=== PATIENT | female | born 1975 | race Caucasian/White ===

== ENCOUNTER 2016-05-06 12:44 | Emergency (ER) | payer BC ==
[2016-05-06 13:01] VITALS: TEMP 99.3
--- NOTE | 2016-05-06 14:38 | CT ---
EXAM DESCRIPTION: CT ABDOMEN PELVIS WITH IV CONTRAST CLINICAL HISTORY: rlq pain 2d COMPARISON: February 09, 2014 TECHNIQUE: Post-contrast CT images of the abdomen and pelvis are obtained. CT scan done according to ALARA (As Low As Reasonably Achievable). FINDINGS: Visualized lung bases show no acute findings. Liver is enlarged measuring 18.1 cm AP at the right midclavicular line. Liver is mildly heterogeneous and decreased attenuation compared to the spleen. Stable fluid attenuation cyst of the anterior right lobe of the liver measuring 19 mm. The spleen, pancreas, adrenal glands, and contracted gallbladder are unremarkable. Abdominal vasculature is unremarkable. There is are 2, 2-3 mm nonobstructing calcifications in a lower pole calyx of the right kidney stable from previous exam. No ureteral calcification or obstruction is seen. Urinary bladder is unremarkable. The uterus and ovaries are unremarkable. The appendix is within normal limits. There are borderline lymph nodes in the mesenteric the right lower quadrant measuring up to 9 mm short axis. These are stable from previous. Occasional nonspecific less than 1 cm retroperitoneal lymph nodes are identified. No small bowel obstruction. Stomach is unremarkable. Scattered diverticuli of the descending to sigmoid colon are seen without associated inflammatory changes or fluid collections. Osseous structures show no aggressive bony lesions. IMPRESSION: Nonobstructing right nephrolithiasis is again seen. No CT evidence of acute appendicitis. Colon diverticulosis without CT evidence of diverticulitis. Stable hepatic cyst. Hepatomegaly with findings that suggest diffuse fatty infiltration of the liver. Electronically signed by: Felix Garcia MD 05/06/2016 14:36
[2016-05-06 14:45] VITALS: O2SAT 97
--- NOTE | 2016-05-06 16:19 | US ---
EXAM DESCRIPTION: US PELVIS CLINICAL HISTORY: rlq pain COMPARISON: None. TECHNIQUE: Transvaginalsonographic images of the pelvis were acquired and submitted for review. FINDINGS: Uterus: * Orientation- anteverted. * Size- 9.7 x 4.7 x 4.2cm * Mass- a fibroid is observed posteriorly measuring 2.6 x 2.5 x 1.9 cm. * Cervix- nabothian cyst * Endometrium- normal and measures 7 mm in thickness Ovaries: * Size- right measures 2.14 x 1.8 x 2.4 cm; left measures 1.47 x 1.8 x 1.4 cm * Cyst-follicles are identified in both ovaries. * Mass- None. * Vascular flow- Present. Adnexa: Mass- None. Free fluid - None. IMPRESSION: A fibroid is observed posteriorly in the uterus measuring 2.6 cm in greatest diameter. Electronically signed by: Chris Valles MD 05/06/2016 16:17
[2016-05-06] MEDS ORDERED: MAGNESIUM HYDROXIDE 30 ML UD PO ONE (16:40)
[2016-05-06] MEDS ORDERED: cefTRIAXone SODIUM 1 GM VIAL IM ONE (16:40)
--- NOTE | 2016-05-06 16:49 | ED.PDOC ---
History of Present Illness - General Chief Complaint: Abdominal Pain Stated Complaint: abdominal discomfort Time Seen by Provider: 05/06/16 12:53 Source: patient Exam Limitations: no limitations - History of Present Illness Initial Comments: the patient is a 40-year-old female presenting to the emergency room secondary to right lower quadrant pain. She seems to have pain for the last 24 hours. No nausea or vomiting. She has had some mild increase in urination. It is a little worse with movement. It is definitely worse when I press down there. She still has her appendix. She has had a tubal ligation in the past but no other abdominal surgeries. She is having bowel movements and passing gas. No diarrhea. No fevers. No other new symptoms other than just pain. Timing/Duration: 24 hours Severity: moderate Improving Factors: nothing Worsening Factors: nothing Associated Symptoms: denies symptoms Allergies/Adverse Reactions: Allergies NO KNOWN ALLERGY Allergy (Verified 05/06/16 13:03) Home Medications: Ambulatory Orders Ciprofloxacin [Cipro] 500 mg PO BID #20 tab 05/06/16 Citalopram Hydrobromide [CeleXA] 20 mg PO DAILY 05/06/16 Lorazepam [Ativan] 1 mg PO DAILY PRN 05/06/16 Metronidazole 500 mg PO TID #30 tab 05/06/16 Review of Systems - Review of Systems Constitutional: States: no symptoms reported EENTM: States: no symptoms reported Respiratory: States: no symptoms reported Cardiology: States: no symptoms reported Gastrointestinal/Abdominal: States: see HPI Genitourinary: States: see HPI Musculoskeletal: States: no symptoms reported Skin: States: no symptoms reported Neurological: States: no symptoms reported All other Systems: No Change from Baseline Past Medical History (General) - Patient Medical History Hx Stroke: No Hx Congestive Heart Failure: No Hx Diabetes: No Hx Renal Disease: Yes - Kidney stones, Lithotripsy X1 for stone >11mm. Hx MRSA: No - Vaccination History Hx Influenza Vaccination: No - Social History Hx Tobacco Use: No Hx Alcohol Use: Yes - Occasional - drank beer on thursday and thought she passed the stone. Hx Substance Use: No Hx Substance Use Treatment: No Hx Depression: Yes - Female History Patient is a Female of Child Bearing Age (10 -59 yrs old): Yes Patient : No Family Medical History - Family History Mother Family History: Unknown Living Status: Unknown Sister Family History: Unknown Living Status: Still Living Hx Family;Other: Multiple family members with kidney stones. Physical Exam - Physical Exam General Appearance: Alert, No apparent distress Eye Exam: bilateral normal Ears, Nose, Throat: normal ENT inspection, normal pharynx Neck: full range of motion, supple, normal inspection Respiratory: chest non-tender, lungs clear, normal breath sounds, no respiratory distress, no accessory muscle use Cardiovascular/Chest: normal peripheral pulses, regular rate, rhythm, no edema Peripheral Pulses: radial,right: 2+, radial,left: 2+, dorsalis pedis,right: 2+, dorsalis pedis,left: 2+ Gastrointestinal/Abdominal: soft, other - right lower quadrant with moderate discomfort palpation. No suprapubic discomfort to palpation. No right upper or left lower discomfort palpation. No costovertebral angle tenderness. Rectal Exam: deferred Back Exam: normal inspection Extremity: normal range of motion, non-tender, normal inspection, no pedal edema , normal capillary refill Neurologic: alert, normal mood/affect, oriented x 3 Skin Exam: normal color Comments: Vital Signs - 24 hr 05/06/16 05/06/16 05/06/16 12:54 14:40 16:00 Temperature 99.3 F Pulse Rate [ 76 73 74 Left Radial] Respiratory 20 20 18 Rate Blood Pressure 129/85 137/88 152/94 [Right Arm] O2 Sat by Pulse 98 97 97 Oximetry Progress - Progress Progress: 05/06/16 16:54 the patient is a 40-year-old female presenting with right lower quadrant pain of uncertain etiology at this time. Lab work, CT scan and pelvic ultrasound are reassuring. she does have mild constipation and thus will receive a dose of laxative here today all as 1 dose of Rocephin. If getting cleaned out does not improve the pain and the patient is to start taking her prescriptions for ciprofloxacin and Flagyl. We will cover for early appendicitis, mild colitis or early diverticulitis not directly visualized on the CT scan or reflected in the lab work at this time. she needs to take her medications with a small amount of food and avoid alcohol while taking them. The patient is to follow up with her primary care doctor later this week or early next week. She needs to return here to the emergency room for any acute worsening. 05/06/16 16:57 - Results/Orders Results/Orders: Laboratory Tests 05/06/16 05/06/16 13:04 13:20 WBC 8.2 RBC 4.70 Hgb 14.0 Hct 42.4 MCV 90.2 MCH 29.8 MCHC 33.1 RDW 13.3 Plt Count 258 MPV 8.0 Absolute Neuts (auto) 5.10 Absolute Lymphs (auto) 2.30 Absolute Monos (auto) 0.50 Absolute Eos (auto) 0.30 Absolute Basos (auto) 0.10 Neutrophils % 62.1 Lymphocytes % 27.4 Monocytes % 6.0 Eosinophils % 3.8 Basophils % 0.7 PT 11.4 INR 1.010 PTT (SP) 29.8 Sodium 134 L Potassium 4.0 Chloride 101 Carbon Dioxide 24 Anion Gap 13.0 BUN 12 Creatinine 0.60 BUN/Creatinine Ratio 20.0 Random Glucose 100 Serum Osmolality 268.1 L Calcium 9.0 Total Bilirubin 0.4 AST 19 ALT 16 Alkaline Phosphatase 65 Serum Total Protein 7.4 Albumin 3.7 Globulin 3.7 H Albumin/Globulin Ratio 1.0 L Serum HCG, Qual Negative Urine Color Yellow Urine Appearance Sl cloudy Urine pH 7.5 Ur Specific [place] 1.020 Urine Protein Negative Urine Glucose (UA) Negative Urine Ketones Negative Urine Blood Trace-intact H Urine Nitrite Negative Urine Bilirubin Negative Urine Urobilinogen 0.2 Ur Leukocyte Esterase Negative Urine RBC 0-1 Urine WBC 0 Ur Epithelial Cells 10-20 Urine Bacteria 0 pelvic ultrasound shows small uterine fibroids. No significant free fluid. No large ovarian cyst. No evidence of hemorrhage. Good flow of the ovaries. CT scan of the abdomen and pelvis shows no evidence of bladder or pancreas pathology. No evidence of any obstructing renal stones. No evidence of ovarian or uterine pathology. No overt evidence of colonic inflammation or appendicitis. No pathology noted to explain the pain the patient has. additionally the patient does have mild hepatomegaly consistent with mild fatty liver disease. She also has a few mildly enlarged lymph nodes in the right lower mesentery. These are unchanged from previous analysis. Departure - Departure Clinical Impression: Abdominal pain Qualifiers: Abdominal location: right lower quadrant Qualifier Code: (R10.31) Right lower quadrant pain Disposition: Discharge to Home or Self Care Condition: Fair Departure Forms: ED Discharge - Pt. Copy, Patient Portal Self Enrollment Instructions: DI for Abdominal Pain-Adult Diet: full liquid diet Activity: increase activity as tolerated Referrals: Miquel Lamb MD [Primary Care Provider] - 1-5 Days Prescriptions: Ciprofloxacin [Cipro] 500 mg PO BID #20 tab Metronidazole 500 mg PO TID #30 tab Home Medications: Ambulatory Orders Ciprofloxacin [Cipro] 500 mg PO BID #20 tab 05/06/16 Citalopram Hydrobromide [CeleXA] 20 mg PO DAILY 05/06/16 Lorazepam [Ativan] 1 mg PO DAILY PRN 05/06/16 Metronidazole 500 mg PO TID #30 tab 05/06/16 Additional Instructions: the patient is a 40-year-old female presenting with right lower quadrant pain of uncertain etiology at this time. Lab work, CT scan and pelvic ultrasound are reassuring. she does have mild constipation and thus will receive a dose of laxative here today all as 1 dose of Rocephin. If getting cleaned out does not improve the pain and the patient is to start taking her prescriptions for ciprofloxacin and Flagyl. We will cover for early appendicitis, mild colitis or early diverticulitis not directly visualized on the CT scan or reflected in the lab work at this time. she needs to take her medications with a small amount of food and avoid alcohol while taking them. The patient is to follow up with her primary care doctor later this week or early next week. She needs to return here to the emergency room for any acute worsening.
[2016-05-06] MEDS ORDERED: LIDOCAINE 1% 10 ML VIAL INJ ONE (16:54)
[2016-05-06 17:13] VITALS: BP 126/85
== END 2016-05-06 17:17 | disposition home or self-care (01) ==
LOC: ER 12:44
DX: R10.31 Right lower quadrant pain (principal)

== ENCOUNTER 2016-05-17 18:37 | Emergency (ER) | payer BC ==
[2016-05-17 19:09] VITALS: TEMP 99.7; O2SAT 99
--- NOTE | 2016-05-17 19:18 | ED.PDOC ---
History of Present Illness - General Chief Complaint: Problem Stated Complaint: mid back pain Time Seen by Provider: 05/17/16 18:59 Source: patient Exam Limitations: no limitations - History of Present Illness Initial Comments: She stated that her symptoms of dull epigasric pain radiating to back which had been constant since this am.She had been on ketosis diet for 2 weeks and had 6 pounds weight loss. No nausea vomitin,no dysuria,no diarrhea. Timing/Duration: constant Improving Factors: nothing Worsening Factors: nothing Associated Symptoms: denies symptoms Allergies/Adverse Reactions: Allergies NO KNOWN ALLERGY Allergy (Verified 05/17/16 19:12) Home Medications: Ambulatory Orders Ciprofloxacin [Cipro] 500 mg PO BID #20 tab 05/06/16 Citalopram Hydrobromide [CeleXA] 20 mg PO DAILY 05/06/16 Lorazepam [Ativan] 1 mg PO DAILY PRN 05/06/16 Ranitidine HCl [Eql Heartburn Relief Maxi] 150 mg PO BID #60 tab 05/17/16 Review of Systems - Review of Systems Constitutional: States: no symptoms reported EENTM: States: no symptoms reported Respiratory: States: no symptoms reported Cardiology: States: no symptoms reported Gastrointestinal/Abdominal: States: see HPI Genitourinary: States: no symptoms reported Musculoskeletal: States: no symptoms reported Skin: States: no symptoms reported Neurological: States: no symptoms reported Endocrine: States: no symptoms reported Hematologic/Lymphatic: States: no symptoms reported Past Medical History (General) - Patient Medical History Hx Seizures: No Hx Stroke: No Hx Dementia: No Hx Asthma: No Hx of COPD: No Hx Cardiac Disorders: No Hx Congestive Heart Failure: No Hx Pacemaker: No Hx Hypertension: No Hx Thyroid Disease: No Hx Diabetes: No Hx Gastroesophageal Reflux: No Hx Renal Disease: No Hx Cancer: No Hx of HIV: No Hx Hepatitis C: No Hx MRSA: No Surgical History: tonsillectomy, other - BTL - Vaccination History Hx Tetanus, Diphtheria Vaccination: Yes Hx Influenza Vaccination: No Hx Pneumococcal Vaccination: No Immunizations Up to Date: Yes - Social History Hx Tobacco Use: No Hx Chewing Tobacco Use: No Hx Alcohol Use: Yes - rarely Hx Substance Use: No Hx Substance Use Treatment: No Hx Depression: Yes Feels Threatened In Home Enviroment: No Feels Threatened In a Relationship: No Hx Physical Abuse: No Hx Emotional Abuse: No Hx Suspected Abuse: No - Female History Patient is a Female of Child Bearing Age (10 -59 yrs old): Yes Patient : No Family Medical History - Family History Mother Family History: Unknown Living Status: Unknown Hx Cardiac Disease: Yes Hx Family Diabetes: Yes Sister Family History: Unknown Living Status: Still Living Hx Family;Other: Multiple family members with kidney stones. Physical Exam - Physical Exam General Appearance: Alert, No apparent distress Eye Exam: bilateral normal Ears, Nose, Throat: hearing grossly normal, normal ENT inspection, normal pharynx Neck: non-tender, full range of motion, supple, normal inspection Respiratory: chest non-tender, lungs clear, normal breath sounds, no respiratory distress Cardiovascular/Chest: normal peripheral pulses, regular rate, rhythm, no edema, no gallop Gastrointestinal/Abdominal: normal bowel sounds, non tender, soft, no organomegaly Back Exam: normal inspection, no CVA tenderness Extremity: normal range of motion, non-tender, normal inspection Neurologic: no motor/sensory deficits, alert, normal mood/affect, oriented x 3 Skin Exam: normal color, warm/dry Lymphatic: no adenopathy Progress - Results/Orders Results/Orders: 05/17/16 19:30 EKG STAT Laboratory Results WBC 9.3 K/mm3 (4.8-10.8) 05/17/16 19:30 RBC 4.80 M/mm3 (4.20-5.40) 05/17/16 19:30 Hgb 14.1 gm/dL (12.0-16.0) 05/17/16 19:30 Hct 43.2 % (36.0-47.0) 05/17/16 19:30 MCV 89.9 fl (81.0-99.0) 05/17/16 19:30 MCH 29.4 pg (27.0-31.0) 05/17/16 19:30 MCHC 32.7 g/dL (33.0-37.0) L 05/17/16 19:30 RDW 13.6 % (11.5-14.5) 05/17/16 19:30 Plt Count 301 K/mm3 (130-400) 05/17/16 19:30 MPV 7.7 fl (7.40-10.4) 05/17/16 19:30 Absolute Neuts (auto) 5.50 K/uL (1.8-6.8) 05/17/16 19:30 Absolute Lymphs (auto) 2.60 K/uL (1.0-3.4) 05/17/16 19:30 Absolute Monos (auto) 0.90 K/uL (0.2-0.8) H 05/17/16 19:30 Absolute Eos (auto) 0.20 K/uL (0.0-0.4) 05/17/16 19:30 Absolute Basos (auto) 0.10 K/uL (0.0-0.1) 05/17/16 19:30 Neutrophils % 59.3 % (42.0-78.0) 05/17/16 19:30 Lymphocytes % 27.7 % (20.0-50.0) 05/17/16 19:30 Monocytes % 9.9 % (2.0-9.0) H 05/17/16 19:30 Eosinophils % 2.5 % (1.0-5.0) 05/17/16 19:30 Basophils % 0.6 % (0.0-2.0) 05/17/16 19:30 D-Dimer, Quantitative < 230 ng/mL (0-230) 05/17/16 19:30 Sodium 137 mmol/L (135-145) 05/17/16 19:30 Potassium 3.8 mmol/L (3.6-5.0) 05/17/16 19:30 Chloride 102 mmol/L (101-111) 05/17/16 19:30 Carbon Dioxide 27 mmol/L (21-31) 05/17/16 19:30 Anion Gap 11.8 (12-18) L 05/17/16 19:30 BUN 13 mg/dL (7-18) 05/17/16 19:30 Creatinine 0.60 mg/dL (0.6-1.3) 05/17/16 19:30 BUN/Creatinine Ratio 21.7 (10-20) H 05/17/16 19:30 Random Glucose 93 mg/dL (70-105) 05/17/16 19:30 Serum Osmolality 273.6 mOsm/L (275-295) L 05/17/16 19:30 Calcium 9.4 mg/dL (8.4-10.2) 05/17/16 19:30 Total Bilirubin 0.2 mg/dL (0.2-1.0) 05/17/16 19:30 AST 23 IU/L (10-42) 05/17/16 19:30 ALT 21 IU/L (10-60) 05/17/16 19:30 Alkaline Phosphatase 72 IU/L (42-121) 05/17/16 19:30 Serum Total Protein 8.0 gm/dL (6.4-8.2) 05/17/16 19:30 Albumin 4.3 g/dl (3.2-5.5) 05/17/16 19:30 Globulin 3.7 gm/dL (2.3-3.5) H 05/17/16 19:30 Albumin/Globulin Ratio 1.2 (1.1-1.9) 05/17/16 19:30 Lipase 34 U/L (22-51) 05/17/16 19:30 Urine Color Yellow (Yellow) 05/17/16 19:55 Urine Appearance Clear (Clear) 05/17/16 19:55 Urine pH 5.0 (4.5-7.8) 05/17/16 19:55 Ur Specific [place] 1.025 (1.005-1.030) 05/17/16 19:55 Urine Protein Negative mg/dL 05/17/16 19:55 Urine Glucose (UA) Negative mg/dL (Negative) 05/17/16 19:55 Urine Ketones Trace mg/dL (NEGATIVE) 05/17/16 19:55 Urine Blood Small (Negative) H 05/17/16 19:55 Urine Nitrite Negative 05/17/16 19:55 Urine Bilirubin Negative (NEGATIVE) 05/17/16 19:55 Urine Urobilinogen 0.2 mg/dL (0.2-1.0) 05/17/16 19:55 Ur Leukocyte Esterase Negative (Negative) 05/17/16 19:55 Urine RBC 0-1 /hpf 05/17/16 19:55 Urine WBC 0-1 /hpf 05/17/16 19:55 Ur Epithelial Cells 5-10 /hpf 05/17/16 19:55 Urine Bacteria Rare 05/17/16 19:55 - EKG/XRAY/CT EKG: Sinus, no ST T wave changes XRAY: abdomen - no acute abnormalities noted Departure - Departure Clinical Impression: Epigastric abdominal pain Time of Disposition: 21:19 Disposition: Discharge to Home or Self Care Condition: Good Departure Forms: ED Discharge - Pt. Copy, Patient Portal Self Enrollment Instructions: DI for Gastroesophageal Reflux Disease (GERD) Prescriptions: Ranitidine HCl [Eql Heartburn Relief Maxi] 150 mg PO BID #60 tab Home Medications: Ambulatory Orders Ciprofloxacin [Cipro] 500 mg PO BID #20 tab 05/06/16 Citalopram Hydrobromide [CeleXA] 20 mg PO DAILY 05/06/16 Lorazepam [Ativan] 1 mg PO DAILY PRN 05/06/16 Ranitidine HCl [Eql Heartburn Relief Maxi] 150 mg PO BID #60 tab 05/17/16
[2016-05-17 21:16] VITALS: BP 105/68
--- NOTE | 2016-05-26 00:22 | RAD ---
EXAM: Abdomen Series CLINICAL INDICATION: 40-year-old female with mid back and RIGHT upper quadrant pain. TECHNIQUE: Single view, PA chest was obtained. Two views of the abdomen were obtained in upright and supine positioning. COMPARISON: None. FINDINGS: Chest: Unremarkable cardiac and mediastinal silhouette. Heart size is normal. Lungs are clear without focal opacity, pneumothorax or pleural effusions. The visualized bones are within normal limits. Abdomen: Gas is seen within normal caliber large bowel. Large volume of fecal material present throughout the large bowel. Posterior small bowel gas. No free air is identified. Multiple pelvic calcifications suggestive of phleboliths. The osseous structures are within normal limits. The lung bases are clear. IMPRESSION: 1. No acute cardiopulmonary abnormalities. 2. Normal bowel gas pattern. Electronically signed by: Chichi Carreon MD 05/17/2016 8:37 PM [employer]OTE [employer]ING [employer]CH[employer]IST
== END 2016-05-17 21:27 | disposition home or self-care (01) ==
LOC: ER 18:37
DX: R10.13 Epigastric pain (principal); F32.9 Major depressive disorder, single episode, unspecified; Z79.899 Other long term (current) drug therapy

== ENCOUNTER 2017-09-13 17:28 | Emergency (ER) | payer BC ==
[2017-09-13] MEDS ORDERED: SODIUM CHLORIDE 0.9% 1000ML 1,000 ML IVS ONE (17:54)
[2017-09-13] MEDS ORDERED: KETOROLAC TROMETHAMINE INJ 30 MG/ML VIAL IV ONE (17:54)
[2017-09-13] MEDS ORDERED: TAMSULOSIN 0.4 MG CAP PO ONE (17:54)
--- NOTE | 2017-09-13 17:58 | ED.PDOC ---
History of Present Illness - General Source: patient Exam Limitations: no limitations - History of Present Illness Initial Comments: patient comes in today with severe sudden onset of right flank pain that radiates to her abdomen. Patient states the pain is to have 10 and nothing seems to help with the exception of lying on her side in the field position. Movement or by mouth intake does not make a difference. She's had no nausea, vomiting, or diarrhea. She had a normal bowel movement yesterday. She's had no fever or chills and denies dysuria. She has not passed had kidney stones and does feel like a kidney stone. She otherwise is fairly healthy but did recently entered go gastric sleeve and has had a hysterectomy last year. She takes anxiety medicine but otherwise is not taking anything [id number] on a regular basis. Timing/Duration: 1-3 hours Severity: severe Improving Factors: nothing Worsening Factors: nothing <MEGAN MCCLENDON - Last Filed: 09/13/17 17:56> <DADA SAM - Last Filed: 09/13/17 22:53> - General Chief Complaint: Problem Stated Complaint: R flank pain Time Seen by Provider: 09/13/17 17:53 - History of Present Illness Allergies/Adverse Reactions: Allergies NO KNOWN ALLERGY Allergy (Verified 09/13/17 17:45) Home Medications: Ambulatory Orders Citalopram Hydrobromide [CeleXA] 20 mg PO DAILY 05/06/16 Lorazepam [Ativan] 1 mg PO DAILY PRN 05/06/16 Ranitidine HCl [Eql Heartburn Relief Maxi] 150 mg PO BID #60 tab 05/17/16 Acetamin W/Cod #3 Tab [Tylenol w/CODEINE #3] 2 ea PO Q6HR PRN 3 Days #12 tab Tamsulosin HCl [Flomax] 0.4 mg PO DAILY PRN 5 Days #5 cap 09/13/17 Review of Systems - Review of Systems Constitutional: States: no symptoms reported. Denies: chills, fever EENTM: States: no symptoms reported Respiratory: States: no symptoms reported. Denies: cough, short of breath, wheezing Cardiology: States: no symptoms reported. Denies: chest pain, edema, palpitations Gastrointestinal/Abdominal: States: see HPI. Denies: constipation, diarrhea, nausea, vomiting Genitourinary: States: see HPI, hematuria, pain. Denies: dysuria, frequency Musculoskeletal: States: back pain <MEGAN MCCLENDON - Last Filed: 09/13/17 17:56> Past Medical History (General) - Patient Medical History Hx Seizures: No Hx Stroke: No Hx Dementia: No Hx Asthma: No Hx of COPD: No Hx Cardiac Disorders: No Hx Congestive Heart Failure: No Hx Pacemaker: No Hx Hypertension: No Hx Thyroid Disease: No Hx Diabetes: No Hx Gastroesophageal Reflux: No Hx Renal Disease: No Hx Cancer: No Hx of HIV: No Hx Hepatitis C: No Hx MRSA: No Surgical History: Hysterectomy, other - Vaccination History Hx Tetanus, Diphtheria Vaccination: Yes Hx Influenza Vaccination: No Hx Pneumococcal Vaccination: No - Social History Hx Tobacco Use: Yes Hx Chewing Tobacco Use: No Hx Alcohol Use: Yes - rarely Hx Substance Use: No Hx Substance Use Treatment: No Hx Depression: Yes Hx Physical Abuse: No Hx Emotional Abuse: No Hx Suspected Abuse: No - Female History Patient : No <MEGAN MCCLENDON - Last Filed: 09/13/17 17:56> Family Medical History - Family History Mother Family History: Unknown Living Status: Unknown Hx Cardiac Disease: Yes Hx Family Diabetes: Yes Sister Family History: Unknown Living Status: Still Living Hx Family;Other: Multiple family members with kidney stones. <MEGAN MCCLENDON - Last Filed: 09/13/17 17:56> Physical Exam - Physical Exam General Appearance: Obvious distress Eye Exam: bilateral normal Ears, Nose, Throat: hearing grossly normal, normal ENT inspection, normal pharynx Neck: non-tender, full range of motion, supple Respiratory: chest non-tender, lungs clear, normal breath sounds, no respiratory distress Cardiovascular/Chest: normal peripheral pulses, regular rate, rhythm, no edema, no gallop, no JVD, no murmur Gastrointestinal/Abdominal: normal bowel sounds, non tender, soft Back Exam: CVA tenderness (R) Extremity: normal range of motion, non-tender Neurologic: alert, oriented x 3 <MEGAN MCCLENDON - Last Filed: 09/13/17 17:56> - Physical Exam General Appearance: Other - at approx 20:05 she reports feeling much better. Has a hx of kidney stones. Flomax always seems to help. I will refill it for her but explained it may not be necessary due to the small size of this stone. She has someone to f/u with. [place] <DADA SAM - Last Filed: 09/13/17 22:53> Departure <MCCLENDONMEGAN - Last Filed: 09/13/17 17:56> - Departure Time of Disposition: 20:12 <FLACODADA - Last Filed: 09/13/17 22:53> - Departure Clinical Impression: Ureterolithiasis, Hypokalemia Disposition: Discharge to Home or Self Care Condition: Good Departure Forms: ED Discharge - Pt. Copy, Patient Portal Self Enrollment Instructions: DI for Kidney Stones, DI for Hypokalemia Referrals: Miquel Lamb MD [Primary Care Provider] - 1-2 Days Prescriptions: Acetamin W/Cod #3 Tab [Tylenol w/CODEINE #3] 2 ea PO Q6HR PRN 3 Days #12 tab PRN Reason: Severe Pain Tamsulosin HCl [Flomax] 0.4 mg PO DAILY PRN 5 Days #5 cap PRN Reason: Severe Pain Home Medications: Ambulatory Orders Citalopram Hydrobromide [CeleXA] 20 mg PO DAILY 05/06/16 Lorazepam [Ativan] 1 mg PO DAILY PRN 05/06/16 Ranitidine HCl [Eql Heartburn Relief Maxi] 150 mg PO BID #60 tab 05/17/16 Acetamin W/Cod #3 Tab [Tylenol w/CODEINE #3] 2 ea PO Q6HR PRN 3 Days #12 tab Tamsulosin HCl [Flomax] 0.4 mg PO DAILY PRN 5 Days #5 cap 09/13/17
--- NOTE | 2017-09-13 19:03 | CT ---
EXAM: Abdoment/Pelvis w/o Contrast CLINICAL INDICATION: 41-year-old female with renal colic/kidney stone? Technologist note: RIGHT flank pain radiating from anterior abdomen to posterior abdomen with dark urine. COMPARISON: None. EXAMINATION: CT of the abdomen and pelvis was performed without intravenous or oral contrast. Multiplanar reformatted images were provided. This exam was performed according to our departmental dose optimization program which includes use of automated exposure control, adjustment of the mA and/or kV according to patient size and/or use of iterative reconstruction technique. FINDINGS: Evaluation of solid organ pathology is limited secondary to lack of intravenous contrast. Within these limitations, the following observations are made. Chest: Evaluation through the lung bases reveals no focal opacity, pleural effusion or pneumothorax. Heart size is within normal limits. No pericardial effusion. Nonspecific thickening of the distal esophagus of uncertain etiology. Multiple surgical suture material identified from the level of the gastroesophageal junction through gastric body and duodenum following prior gastric resection with innumerable surgical clips throughout the upper abdomen. Abdomen and pelvis: Few foci of punctate and subcentimeter calcification present within the renal collecting system. The largest calculus present within the inferior pole measures 4 mm compatible with nonobstructing calculus. Prominence of the RIGHT renal pelvis to the level of the proximal ureter secondary to obstructing calculus measuring 2 mm. Focal area of circumscribed hypoattenuation present at the level of the RIGHT lobe liver with hypoattenuating contents measuring less than 90 Hounsfield units and measuring 14 mm just above a simple hepatic cyst, stable in comparison to previous contrast-enhanced examination dated 05/06/2016. The liver, gallbladder, pancreas, spleen, bilateral kidneys and bilateral adrenal glands are within normal limits. The vessels are normal in caliber. No abdominopelvic lymph nodes are noted to be pathologically enlarged by CT measurement criteria. The bowel is within normal limits without abnormal bowel wall thickness or bowel dilation. Diverticular disease without findings to suggest diverticulitis. No free air. No free abdominopelvic fluid collections. The appendix is within normal limits. Multiple pelvic phleboliths again noted. Small volume of free fluid within the dependent pelvis, may be physiologic in a patient this age. Status post hysterectomy since the previous examination. The osseous structures are within normal limits. IMPRESSION: 1. Mild RIGHT hydronephrosis and obstructing 2 mm calculus present within the proximal RIGHT ureter. 2. Nonspecific thickening of the distal esophagus. 3. Trace fluid within the dependent pelvis of uncertain etiology, may be physiologic in a patient this age. 4. Diverticular disease without findings to suggest diverticulitis. 5. Postoperative changes following gastric surgery and hysterectomy as detailed above. Electronically signed by: Chichi Carreon MD 09/13/2017 7:02 PM CDT
[2017-09-13] MEDS ORDERED: MORPHINE SULFATE INJ 10 MG/ML VIAL IV ONE (19:51)
[2017-09-13 19:59] VITALS: TEMP 99.1; O2SAT 98
[2017-09-13] MEDS ORDERED: POTASSIUM CHLORIDE 20 MEQ TAB PO ONE (20:17)
[2017-09-13] MEDS ORDERED: ACETAMINOPHEN W/COD #3 TAB (ER Disp) PO ONE (20:18)
[2017-09-13 20:38] VITALS: BP 124/72
== END 2017-09-13 20:38 | disposition home or self-care (01) ==
LOC: ER 17:28
DX: N13.2 Hydronephrosis with renal and ureteral calculous obstruction (principal); E87.6 Hypokalemia; F41.9 Anxiety disorder, unspecified; Z87.442 Personal history of urinary calculi; Z87.891 Personal history of nicotine dependence; Z79.899 Other long term (current) drug therapy
CPT/HCPCS: 36415; 74176; 80053; 81001; 85025; 87086; J1885; J2270; J7030

== ENCOUNTER 2019-05-21 13:48 | Emergency (ER) | payer SELFPAY ==
--- NOTE | 2019-05-21 14:03 | ED.PDOC ---
History of Present Illness - General Chief Complaint: Lower Extremity Injury Stated Complaint: Right ankle injury Time Seen by Provider: 05/21/19 14:00 Source: patient Exam Limitations: no limitations - History of Present Illness Initial Comments: 43-year-old female presenting after fall at work. She states she was sitting on her right foot, stood up to walk, and inverted right ankle. She states she stood up and tried to walk again, and inverted ankle a second time. Unable to bear weight at all. Reports pain and swelling to the lateral aspect of the right ankle. Has not taken anything for pain. Injury happened approximately 30 minutes ago. Denies any head trauma, backslash neck pain, no other injuries. Occurred: just prior to arrival Pain - Lower Extremity: moderate: Right Ankle Method of Injury: twisted Improving Factors: rest Worsening Factors: movement Allergies/Adverse Reactions: Allergies NO KNOWN ALLERGY Allergy (Verified 05/21/19 14:31) Home Medications: Ambulatory Orders Ibuprofen [Motrin] 400 mg PO Q6H PRN #20 tab 05/21/19 Tramadol HCl 50 - 100 mg PO Q6H PRN #20 tab 05/21/19 Review of Systems - Review of Systems Cardiology: States: no symptoms reported Gastrointestinal/Abdominal: States: no symptoms reported Musculoskeletal: States: joint pain, joint swelling. Denies: back pain, muscle pain, muscle stiffness, neck pain Neurological: States: no symptoms reported Past Medical History (General) - Patient Medical History Hx Seizures: No Hx Stroke: No Hx Dementia: No Hx Asthma: No Hx of COPD: No Hx Cardiac Disorders: No Hx Congestive Heart Failure: No Hx Pacemaker: No Hx Hypertension: No Hx Thyroid Disease: No Hx Diabetes: No Hx Gastroesophageal Reflux: No Hx Renal Disease: No Hx Cancer: No Hx of HIV: No Hx Hepatitis C: No Hx MRSA: No - Vaccination History Hx Tetanus, Diphtheria Vaccination: Yes Hx Influenza Vaccination: No Hx Pneumococcal Vaccination: No - Social History Hx Tobacco Use: Yes Hx Chewing Tobacco Use: No Hx Alcohol Use: Yes - rarely Hx Substance Use: No Hx Substance Use Treatment: No Hx Depression: Yes Hx Physical Abuse: No Hx Emotional Abuse: No Hx Suspected Abuse: No - Female History Patient : No Family Medical History - Family History Mother Family History: Unknown Living Status: Unknown Hx Cardiac Disease: Yes Hx Family Diabetes: Yes Sister Family History: Unknown Living Status: Still Living Hx Family;Other: Multiple family members with kidney stones. Physical Exam - Physical Exam General Appearance: Alert, Comfortable Neck: non-tender, full range of motion Cardiovascular/Respiratory: regular rate, rhythm, no M/R/G Gastrointestinal/Abdominal: non-tender Back: normal inspection, no vertebral tenderness Leg: normal inspection, non-tender, no evidence of injury Knee: normal inspection, non-tender, no evidence of injury, normal ROM Ankle: soft tissue tenderness - There is tenderness and swelling over the right lateral malleolus. No proximal fibular tenderness, no fifth metatarsal tenderness, no calcaneal tenderness. There is no ecchymosis or deformities. NVID. Foot: normal inspection, non-tender, no evidence of injury, normal ROM Neuro/Tendon: normal sensation, normal motor functions, normal tendon functions Mental Status: alert, oriented x 3 Skin: normal color, warm/dry Progress - Progress Progress: 05/21/19 14:28 Reviewed x-ray personally at 2:26 PM. No fracture, no dislocation. Suspect ankle sprain. Will treat accordingly. - EKG/XRAY/CT XRAY: ankle - No fracture, no dislocation Departure - Departure Clinical Impression: Sprain of right ankle or foot Disposition: Discharge to Home or Self Care Condition: Good Departure Forms: ED Discharge - Pt. Copy, Patient Portal Self Enrollment Instructions: DI for Leg Pain, Ankle Sprain Diet: resume usual diet Activity: increase activity as tolerated, walking as tolerated Referrals: Miquel Lamb MD [Primary Care Provider] - 1-2 Weeks Prescriptions: Ibuprofen [Motrin] 400 mg PO Q6H PRN #20 tab PRN Reason: Pain Tramadol HCl 50 - 100 mg PO Q6H PRN #20 tab PRN Reason: Pain Home Medications: Ambulatory Orders Ibuprofen [Motrin] 400 mg PO Q6H PRN #20 tab 05/21/19 Tramadol HCl 50 - 100 mg PO Q6H PRN #20 tab 05/21/19
--- NOTE | 2019-05-21 14:28 | RAD ---
EXAM: XR Right Ankle, 2 Views CLINICAL HISTORY: The patient is 43 years old and is Female; pain TECHNIQUE: Frontal and lateral views of the right ankle. COMPARISON: No relevant prior studies available. FINDINGS: BONES/JOINTS: Unremarkable. No acute fracture. No dislocation. SOFT TISSUES: Minimal ankle soft tissue swelling is present. IMPRESSION: Minimal ankle soft tissue swelling is present. No underlying acute bony abnormality. Electronically signed by: Chitra Chávez MD 05/21/2019 2:26 PM [facility]
[2019-05-21 14:31] VITALS: O2SAT 100
[2019-05-21 15:05] VITALS: BP 130/76; TEMP 99.4
== END 2019-05-21 15:00 | disposition home or self-care (01) ==
LOC: ER 13:48
DX: S93.401A Sprain of unspecified ligament of right ankle, initial encounter (principal); F32.9 Major depressive disorder, single episode, unspecified; W18.30XA Fall on same level, unspecified, initial encounter; Y99.0 Civilian activity done for income or pay; Y92.69 Other specified industrial and construction area as the place of occurrence of the external cause; Z87.891 Personal history of nicotine dependence